=== PATIENT | female | born 2000 | race American Indian/Alaskan Native ===

== ENCOUNTER 2018-05-03 09:39 | Inpatient (IN) | payer BC ==
[2018-05-03 09:41] VITALS: BMI 23.2
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
[2018-05-03 11:28] LABS: BASO % 0.5 % (0.0-2.0); EOS % 0.3 % (0.0-4.0); HEMOGLOBIN 12.6 g/dL (12.0-16.0); LYMPH # 1.6 K/uL (1.0-4.3); LYMPH % 41.6 % (20.0-40.0); MEAN CORPUSCULAR HEMOGLOBIN 33.3 pg (27.0-31.0); MEAN CORPUSCULAR HGB CONC 32.9 g/dL (33.0-37.0); MEAN PLATELET VOLUME 9.6 fl (7.2-11.7); MONO # 0.2 K/uL (0.0-0.8); MONO % 4.7 % (0.0-10.0); NEUT % 52.9 % (50.0-75.0); NRBC % 0.1 % (0.0-0.0); RBC 3.8 Mil/uL (3.80-5.20); RED CELL DISTRIBUTION WIDTH 13.9 % (11.5-14.5); WHITE BLOOD COUNT 3.8 K/uL (4.8-10.8)
[2018-05-03 11:40] LABS: ALB/GLOB RATIO 1.1 (1.0-2.1); ALBUMIN 4.1 g/dL (3.5-5.0); ALT/SGPT 28 U/L (9-52); AST/SGOT 26 U/L (14-36); BLOOD UREA NITROGEN 7 mg/dl (7-17); CALCIUM 9.4 mg/dL (8.4-10.2); GFR NON-AFRICAN AMERICAN > 60
[2018-05-03 14:27] LABS: SQUAMOUS EPITHIAL 23 /hpf (0-5); URINE BILIRUBIN NEGATIVE (NEGATIVE); URINE BLOOD NEGATIVE (NEGATIVE); URINE CLARITY CLOUDY (Clear); URINE COLOR YELLOW (YELLOW); URINE GLUCOSE (UA) NEG (NEGATIVE); URINE LEUKOCYTE ESTERASE TRACE Leu/uL (Negative); URINE PROTEIN 100 mg/dL (NEGATIVE); URINE UROBILINOGEN 0.2-1.0 mg/dL (0.2-1.0)
[2018-05-03 15:23] LABS: BARBITURATES, UR NEGATIVE (NEGATIVE); BENZODIAZEPINES, UR NEGATIVE (NEGATIVE); OPIATES, UR NEGATIVE (NEGATIVE); PHENCYCLIDINE, UR NEGATIVE (NEGATIVE)
[2018-05-03] MEDS ORDERED: Alum-Mag Hydrox-Simethicone Susp (30 mL) PO PRN (16:41)
[2018-05-03] MEDS ORDERED: Magnesium Hydroxide Susp 30 ml UD PO PRN (16:41)
[2018-05-03] MEDS ORDERED: DiphenhydrAMINE 50 mg/ml Inj IM PRN (16:41)
--- NOTE | 2018-05-03 17:54 | RAD ---
Date of service: 05/03/2018 HISTORY: baseline COMPARISON: No prior. FINDINGS: LUNGS: No active pulmonary disease. PLEURA: No significant pleural effusion identified, no pneumothorax apparent. CARDIOVASCULAR: No aortic atherosclerotic calcification present. Normal cardiac size. No pulmonary vascular congestion. OSSEOUS STRUCTURES: No significant abnormalities. VISUALIZED UPPER ABDOMEN: Normal. OTHER FINDINGS: None. IMPRESSION: No active disease.
--- NOTE | 2018-05-03 18:08 | PCM.BM ---
<Roberto Parekh Mellissa - Last Filed: 05/03/18 18:06> Treatment Plan Problems - Problems identified on initial assessmt Hopelessness/Helplessness Date Initiated: 05/03/18 Time Initiated: 18:00 Assessment reference: NA Feeling of Worthlessness Date Initiated: 05/03/18 Time Initiated: 18:00 Assessment reference: NA Treatment assets and liabiliti Patient Assests: adapts well, cooperative, ADL independent, physically healthy Patient Liabilities: live alone, poor support system - Milieu Protocol Maintain good personal hygiene: every shift Encourage regular showers, every shift Remind patient to perform daily oral care, every shift Assist patient to perform ADL's Maintain personal safety: every shift Educate patient to report safety concerns to staff, every shift Monitor environment for contraband/sharps Medication safety: Monitor for expected outcome, potential side effects: every shift, Assess barriers to learning: every shift, Assess readiness for medication education: every shift <JolynnMary - Last Filed: 05/05/18 14:34> Treatment assets and liabiliti Patient Assests: adapts well, cooperative, insightful, motivated, self-reliant, ADL independent, physically healthy, negotiates basic needs, cognitively intact, strong fernando Patient Liabilities: live alone, poor support system, relationship conflicts, substance abuse (Pt. minimally receptive towards psychoeducation regarding harmful effects of cannabis abuse on sxs of depression and anxiety.) Family Contact Family involvement: Family/SO is involved Family contact: Patient agrees to contact, Family has been contacted by patient Family contact name: Pa (stepmom)([phone]) Family contacted how many times per week?: 2 - Goals for Treatment Patient goals for treatment: Patient to continue stabilization on 3NP through medication management and group/supportive therapy to address sxs of depression, improve sleep, and eliminate SI. Patient to be encouraged to attend groups regularly to promote self-awareness, sobriety, and improve insight, compliance, coping skills and self-esteem. Patient to be provided with referral for appropriate level of aftercare to reduce risk of future hospitalizations and ensure safety in the community. Pt. expressing decrease in sxs of depression and improved sleep as tx goals. Importance of group attendance and appropriate outpatient mental health services discussed. Pt. receptive to feedback and expressed motivation for tx. Discharge/Continuing Care - Education Needs Education Needs: Patient Medication, Patient Diagnosis/Disease Process, Patient Coping Skills, Patient Community resources, Patient Aftercare Safety Plan - Discharge Discharge Criteria: Tolerates medication w/o severe side effects, Free of Suicidal thoughts, Normal sleep pattern, Ability to care for self, Reduction of target symptoms (sxs of depression and anxiety) Discharge to:: Home, Other (outpatient mental health services) - Treatment Team Participation Patient/Family/SO Statement: 05/05/18 14:36 Pt. attended tx team this morning to discuss precursors to hospitalization and tx goals. Pt. reported ongoing sxs of depression, primarily in the morning. Pt. reported sleep disturbances, waking up multiple times through-out the night and having difficulties going back to sleep. Psychoeducation regarding medication management and importance of allowing time for medications to improve sxs of depression was provided. Pt. expressing decrease in sxs of depression and improved sleep as tx goals. Importance of group attendance and appropriate outpatient mental health services discussed. Pt. receptive to feedback and expressed motivation for tx. Pt. presents as depressed and exhibited by poor energy/motivation, feelings of sadness and hopelessness. Affect is depressed. Speech: somewhat underproductive; slow and quiet. Thoughts are clear and connected. Pt. denied SI/HI and was able to contract for safety on 3NP. Pt. made aware of staff availability. Discussed with Family/SO: Yes Was Patient/Family/SO present at Treatment Team Meeting: Yes <Marlen Rosas - Last Filed: 05/08/18 08:41> - Diagnosis (1) Depression Status: Acute Interventions: psychotherapy, pharmacotherapy 05/08/18 08:40
[2018-05-04 09:46] LABS: T4 9.28 ug/dl (5.5-11.0)
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
--- NOTE | 2018-05-04 17:10 | CARD ---
APPROVED REPORT Date of service: 05/03/2018 EKG Measurement Heart [id number] <Conclusion> Sinus rhythm with marked sinus arrhythmia Nonspecific T wave abnormality Borderline ECG
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
--- NOTE | 2018-05-05 15:46 | PCM.PYCHPN ---
Psychiatric Progress Note - Psychiatric Progress Note Patient seen today, length of contact: pt evaluated discussed with team chart reviewed Patient Chief Complaint: I still get very depressed in the morning Problems Identified/Issues Discussed: pt evaluated with team, presenting with depressed mood and affect, reported improved sleep, continues to hve nioght farias and poor appetite, discussed increasing dose of remeron, no reported side effects, pt denied any current thoughts of self harm on the unit , denied perceptual disturbances Medical Problems: no previous hospitalizations DSM 5 Symptoms Update: major depression PTSD Medication Change: Yes (increase remeron) Medical Record Reviewed: Yes Mental Status Examination - Cognitive Function Orientation: Person, Place, Situation Attention: WNL Concentration: WNL Association: WNL Fund of Knowledge: WNL Decription of patient's judgement and insights: partiall insight fair judgment - Mood Mood: Depressed, Anxious - Affect Affect: Constricted, Depressed - Speech Speech: Soft - Formal Thought Process Formal Thought Process: No Impairment - Suicidal Ideation Suicidal Ideation: Yes - Homicidal Ideation Homicidal Ideation: No Goal/Treatment Plan - Goal/Treatment Plan Need for Continued Stay: Severe depression anxiety, Discharge may exacerbated symptoms Progress Toward Problem(s) and Goals/Treatment Plan: increase remeron 15mg qhs, CBT group and supportive therapy
[2018-05-05 21:40] VITALS: O2SAT 97
--- NOTE | 2018-05-06 14:44 | PCM.PYCHPN ---
Psychiatric Progress Note - Psychiatric Progress Note Patient seen today, length of contact: pt evaluated discussed with team chart reviewed Patient Chief Complaint: I slept better but I continue to have night farias Problems Identified/Issues Discussed: pt evaluated presenting with depressed mood and affect,, continues to have night farias and poor appetite, discussed adding prazosin 1mg qhs, encouraged pt to attend groups, no reported side effects, pt denied any current thoughts of self harm on the unit , denied perceptual disturbances Medical Problems: no previous hospitalizations Medication Change: Yes (start prazosin) Medical Record Reviewed: Yes Mental Status Examination - Cognitive Function Orientation: Person, Place, Situation Attention: WNL Concentration: WNL Association: WNL Fund of Knowledge: WNL Decription of patient's judgement and insights: partiall insight fair judgment - Mood Mood: Depressed, Anxious - Affect Affect: Constricted, Depressed - Speech Speech: Soft - Formal Thought Process Formal Thought Process: No Impairment - Suicidal Ideation Suicidal Ideation: Yes - Homicidal Ideation Homicidal Ideation: No Goal/Treatment Plan - Goal/Treatment Plan Need for Continued Stay: Severe depression anxiety, Discharge may exacerbated symptoms Progress Toward Problem(s) and Goals/Treatment Plan: prazosin 1mg qhs remeron 15mg qhs, CBT group and supportive therapy
--- NOTE | 2018-05-07 14:57 | PCM.PYCHPN ---
Psychiatric Progress Note - Psychiatric Progress Note Patient seen today, length of contact: pt evaluated discussed with team chart reviewed Patient Chief Complaint: I feel better Problems Identified/Issues Discussed: pt evaluated reported better mood, brighter affect, improved sleep with prazosin, no flash backs or night farias, interacting with staff and other patients, attending groups, improved appetite, denied any current thoughts of self harm, denied side effects of medications Medical Problems: no previous hospitalizations DSM 5 Symptoms Update: PTSD depression borderline personality traits Medication Change: No Medical Record Reviewed: Yes Mental Status Examination - Cognitive Function Orientation: Person, Place, Situation Attention: WNL Concentration: WNL Association: WNL Fund of Knowledge: [facility] Decription of patient's judgement and insights: partiall insight fair judgment - Mood Mood: Anxious - Affect Affect: Constricted - Speech Speech: Appropriate - Formal Thought Process Formal Thought Process: No Impairment - Suicidal Ideation Suicidal Ideation: No - Homicidal Ideation Homicidal Ideation: No Goal/Treatment Plan - Goal/Treatment Plan Need for Continued Stay: Severe depression anxiety, Discharge may exacerbated symptoms Progress Toward Problem(s) and Goals/Treatment Plan: prazosin 1mg qhs remeron 15mg qhs, CBT group and supportive therapy
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
[2018-05-08 09:16] VITALS: BP 123/66; PULSE 85; RESP 17; TEMP 98.5
== END 2018-05-08 10:52 | disposition home or self-care (01) | DRG 882 ==
LOC: SUPCPDRO 09:39 → H.ER 09:39 → H.ERHOLD 11:12 → H.PSYCH 15:40
PROVIDERS: ADMIT Psychiatry & Neurology Psychiatry; ATTEND Psychiatry & Neurology Psychiatry
PROC: GZHZZZZ Group Psychotherapy (ICD-10-PCS; principal; 2018-05-03)
PROC: GZ58ZZZ Individual Psychotherapy, Cognitive-Behavioral (ICD-10-PCS; 2018-05-03)
PROC: GZ56ZZZ Individual Psychotherapy, Supportive (ICD-10-PCS; 2018-05-03)
DX: F43.10 Post-traumatic stress disorder, unspecified (principal); R45.851 Suicidal ideations; F12.90 Cannabis use, unspecified, uncomplicated; F60.3 Borderline personality disorder; F32.9 Major depressive disorder, single episode, unspecified